=== PATIENT | male | born 1960 | race Caucasian/White ===

== ENCOUNTER 2022-04-19 18:44 | Emergency (ER) | payer OTHER ==
[~2022-04-19 18:44] MED LIST: ASPIRIN EC81 MG PO; HCTZ12.5 MG PO; LIPITOR80 MG PO; LOPRESSOR50 MG PO; NORVASC5 MG PO; PLAVIX75 MG PO; PRILOSEC20 MG PO; SINGULAIR10 MG PO; ZESTRIL5 MG PO
[2022-04-19 19:15] LABS: INR 0.97 (0.9-1.2); PROTHROMBIN TIME 12.3 SECONDS (11.8-13.4); PTT 28.1 SECONDS (24.4-34.7)
[2022-04-19 19:19] LABS: BASOPHIL 0.5 % (0-2); EOSINOPHIL 3.6 % (0-5); HCT 43.9 % (42.0-52.0); HGB 15.2 g/dl (13.2-18.0); LYMPHOCYTE 52.1 % (15-48); MCH 30.8 pg (25.0-31.0); MCHC 34.6 g/dL (32.0-36.0); MCV 88.9 fL (78.0-100.0); MONOCYTE 8.1 % (0-12); MPV 10.3 fL (6.0-9.5); NEUTROPHIL 35.3 % (41-80); NRBC 0; PLT 219 K/uL (150-400); RBC 4.94 M/uL (4.70-6.00); RDW 12.7 % (11.5-14.0); WBC 9.5 K/uL (4.0-10.5)
[2022-04-19 19:26] LABS: ALBUMIN 4.2 g/dL (3.4-5.0); BILIRUBIN - TOTAL 0.5 mg/dL (0.2-1.0); BUN/CREAT RATIO (CALC) 8.4 RATIO; CREATININE 0.83 mg/dL (0.67-1.17); GLOBULIN (CALCULATION) 4.5 g/dL; POTASSIUM 3.4 mmol/L (3.5-5.1); TOTAL PROTEIN 8.7 g/dL (6.4-8.2)
== END 2022-04-19 20:15 | disposition other institution (70) ==
LOC: FER 18:44
PROVIDERS: Internal Medicine
DX: I21.3 ST elevation (STEMI) myocardial infarction of unspecified site (principal); I25.10 Atherosclerotic heart disease of native coronary artery without angina pectoris; I25.2 Old myocardial infarction; I10 Essential (primary) hypertension; Z95.1 Presence of aortocoronary bypass graft; E11.9 Type 2 diabetes mellitus without complications; Z20.822 Contact with and (suspected) exposure to COVID-19; Z79.82 Long term (current) use of aspirin
CPT/HCPCS: 36415; 71045; 80053; 84484; 85025; 85610; 85730; 93005; J1644; J2405; J3010; U0002